=== PATIENT | male | born 1965 | race Two or more races ===

== ENCOUNTER 2021-04-02 15:50 | Emergency (ER) | payer MEDICAID, MEDICARE ==
[~2021-04-02] VITALS: Ht 167.6 cm; Wt 68.0 kg
[2021-04-02 16:26] VITALS: BP 97/68
== END 2021-04-02 17:08 | disposition home or self-care (01) ==
LOC: ER 15:51
DX: S81.811D Laceration without foreign body, right lower leg, subsequent encounter (principal); E11.9 Type 2 diabetes mellitus without complications; X58.XXXD Exposure to other specified factors, subsequent encounter